=== PATIENT | female | born 1970 | race Caucasian/White ===

== ENCOUNTER 2020-10-24 14:16 | Outpatient (CLI) | payer SELFPAY ==
--- NOTE | 2020-10-24 15:00 | USCV_ITS ---
Kalina Finnegan Age: 49 Gender: F : 1970 Exam Date: 10/24/2020 15:05 Ordering Phys: Stephen Mccarthy MD ([email or web address]) Technologist: Betsey Reddy Exam Location: [facility] [place] Indication: SHORTNESS OF BREATH BP: 138 / 80 HR: 66 Rhythm: Sinus Technical Quality: Adequate MEASUREMENTS (Male / Female) Normal Values 2D ECHO LV Diastolic Diameter PLAX 4.3 cm 4.2 - 5.9 / 3.9 - 5.3 cm LV Systolic Diameter PLAX 2.8 cm IVS Diastolic Thickness 1.1 cm 0.6 - 1.0 / 0.6 - 0.9 cm IVS Systolic Thickness 1.6 cm LVPW Diastolic Thickness 0.9 cm 0.6 - 1.0 / 0.6 - 0.9 cm LVPW Systolic Thickness 1.8 cm RV Chamber Size 2.5 cm LVOT Diameter 2.0 cm LV Ejection Fraction 2D Teich 65.5 % LV Ejection Fraction MOD 2C 66.3 % LV Ejection Fraction 2C AL 66.5 % LA Diameter 2.3 cm LA Width 2.6 cm LA Height 3.7 cm RA Width 2.8 cm RA Height 3.7 cm Aorta at Sinotubular Diameter 2.4 cm M-MODE LV Diastolic Diameter MM 4.4 cm 4.2 - 5.9 / 3.9 - 5.3 cm LV Systolic Diameter MM 2.8 cm LV Ejection Fraction MM Teich 66.2 % IVS Diastolic Thickness MM 1.2 cm 0.6 - 1.0 / 0.6 - 0.9 cm IVS Systolic Thickness MM 1.7 cm LVPW Diastolic Thickness MM 0.9 cm 0.6 - 1.0 / 0.6 - 0.9 cm LVPW Systolic Thickness MM 1.5 cm Aortic Annulus Diameter 2.6 cm LA Ao Ratio MM 1.0 MV E Point Septal Separation 0.5 cm DOPPLER AV Peak Velocity 105.0 cm/s LVOT Peak Velocity 89.0 cm/s AV Area Cont Eq vti 2.7 cm squared AV Area Cont Eq pk 2.7 cm squared MV Area PHT 5.0 cm squared Mitral E to A Ratio 1.3 MV E' Velocity 46.0 cm/s Mitral E to MV E' Ratio 6.3 Mitral E to LV E' Lateral Ratio 7.4 Mitral E to LV E' Septal Ratio 5.4 TR Peak Velocity 267.0 cm/s TR Peak Gradient 28.5 mmHg Right Atrial Pressure 3.0 mmHg Pulmonary Artery Systolic Pressu 31.5 mmHg PV Peak Velocity 92.0 cm/s RV Acceleration Time 0.1 s RV Ejection Time 0.3 s RV AcT/ET 0.3 FINDINGS Left Ventricle Normal left ventricular cavity size. Normal left ventricular systolic function. No regional wall motion abnormalities. Left ventricular ejection fraction is estimated at 55 %. Normal diastolic function. Right Ventricle The right ventricle is normal in size and function. Right Atrium The right atrium is normal in size. Left Atrium The left atrium is normal in size. Mitral Valve Mildly thickened mitral valve. No mitral valve stenosis. Mild mitral valve regurgitation. Aortic Valve Aortic valve sclerosis without stenosis or regurgitation. Tricuspid Valve Structurally normal tricuspid valve without significant stenosis or regurgitation. Pulmonary artery systolic pressure is normal. Pulmonic Valve Structurally normal pulmonic valve without significant stenosis. There is no pulmonic regurgitation. Pericardium Normal pericardium without effusion. Aorta Normal ascending aorta dimension. CONCLUSIONS 1-Normal left ventricular cavity size. Normal left ventricular systolic function. No regional wall motion abnormalities. Left ventricular ejection fraction is estimated at 55 %. Normal diastolic function. 2-Mildly thickened mitral valve. No mitral valve stenosis. Mild mitral valve regurgitation. 3-Aortic valve sclerosis without stenosis or regurgitation. 4-There is no pericardial effusion. 5-Pulmonary artery systolic pressure is within normal limits. 6-Right atrial pressure is around 5 mm of mercury. 7-No significant change since the prior echocardiogram study of 08/14/2018. Stephen Mccarthy MD (Electronically Signed) Final Date: 24 October 2020 19:13 S
== END 2020-10-24 14:17 | disposition home or self-care (01) ==
LOC: RAD 14:20
PROVIDERS: PCP Internal Medicine; Visit Provider Internal Medicine Cardiovascular Disease
DX: R06.02 Shortness of breath (principal); I34.0 Nonrheumatic mitral (valve) insufficiency; I70.0 Atherosclerosis of aorta
CPT/HCPCS: 93306

== ENCOUNTER → 2021-11-01 15:17 | Outpatient (BNVA) | payer MEDICAID, SELFPAY | PROVIDERS: PCP Nurse Practitioner; Visit Provider Internal Medicine Cardiovascular Disease | DX: I10 Essential (primary) hypertension (principal); R00.2 Palpitations; I83.93 Asymptomatic varicose veins of bilateral lower extremities; E03.9 Hypothyroidism, unspecified; J44.9 Chronic obstructive pulmonary disease, unspecified; Z87.891 Personal history of nicotine dependence | CPT/HCPCS: 93005; 99214 ==

== ENCOUNTER → 2022-01-09 12:43 | Outpatient (BNVA) | payer BC, MEDICAID, SELFPAY | PROVIDERS: PCP Nurse Practitioner; Visit Provider Internal Medicine Cardiovascular Disease | DX: R00.2 Palpitations (principal); I10 Essential (primary) hypertension; I83.93 Asymptomatic varicose veins of bilateral lower extremities; E03.9 Hypothyroidism, unspecified; J44.9 Chronic obstructive pulmonary disease, unspecified; Z87.891 Personal history of nicotine dependence | CPT/HCPCS: 99214 ==

== ENCOUNTER 2022-02-25 06:08 | Day surgery (SDC) | payer BC, MEDICAID, SELFPAY ==
[2022-02-21 14:07] VITALS: BMI 24.7
[2022-02-25] VITALS (10 sets, daily range): BP systolic 120–154; BP diastolic 70–111; PULSE 67–115; RESP 16–18; TEMP 36.1; O2SAT 87–97
[2022-02-25] MEDS: sodium chloride 0.9% 1,000 ML 30 ML IV ×2 (06:36→08:29)
--- NOTE | 2022-02-25 07:54 | P.HP_ITS ---
Same Day Surgery H&P Indication for Procedure/HPI DATE OF PROCEDURE: February 25, 2022 CHIEF COMPLAINT/INDICATIONFOR SURGICAL PROCEDURE: Abdominal pain PREOP DIAGNOSIS: Abdominal pain PLANNED PROCEDURE: Operation Date: 02/25/22 07:45 Proposed Procedures p EGD and colonoscopy [id number],R63.4(Not Applicable) - Bertin Panda MD s Colonoscopy(Not Applicable) - Bertin Panda MD Medications/Allergies* Home Medications Medication Instructions Recorded Confirmed Type albuterol sulfate 90 mcg/actuation 2 puff inhalation Q6H PRN Allergic 08/19/19 02/25/22 History aerosol inhaler (ProAir HFA) Symptoms fluticasone propionate 50 1 spray intranasal DAILY 08/19/19 02/25/22 History mcg/actuation nasal spray,suspension levetiracetam 1,000 mg tablet 1,000 mg PO BID 08/19/19 02/25/22 History paroxetine HCl 20 mg tablet 20 mg PO DAILY 08/19/19 02/25/22 History calcium carbonate 600 mg-vitamin 1 cap PO DAILY 10/17/20 02/21/22 History D3 12.5 mcg (500 unit) capsule (Calcium 600 with Vitamin D3) ascorbic acid (vitamin C) 500 mg 500 mg PO DAILY 11/01/21 02/25/22 History tablet budesonide 0.5 mg/2 mL suspension 0.5 mg inhalation BID 11/01/21 02/21/22 History for nebulization levalbuterol HCl 0.63 mg/3 mL 0.63 mg inhalation TID PRN 11/01/21 02/25/22 History solution for nebulization Allergic Symptoms fluticasone propionate 230 2 puff inhalation BID 01/09/22 02/25/22 History mcg-salmeterol 21 mcg/actuation HFA inhaler (Advair HFA) baclofen 10 mg tablet 10 mg PO TID 01/24/22 02/25/22 History clobetasol 0.025 % topical cream 1 applic topical DAILY 01/24/22 02/25/22 History levothyroxine 137 mcg capsule 137 mcg PO DAILY 01/24/22 02/25/22 History metoprolol succinate 25 mg 25 mg PO DAILY 01/24/22 02/25/22 History tablet,extended release 24 hr multivitamin 1 tab PO DAILY 01/24/22 02/25/22 History ondansetron HCl 4 mg tablet 4 mg PO Q8H PRN Nausea 01/24/22 02/25/22 History psyllium husk 0.4 gram capsule 0.4 g PO DAILY 01/24/22 02/25/22 History (Metamucil) pyridoxine (vitamin B6) 50 mg 25 mg PO DAILY 01/24/22 02/25/22 History tablet vitamin B complex (B 1 tab PO DAILY 01/24/22 02/25/22 History Complex-Vitamin B12) vitamin B12 500 mcg-folic acid 400 1 tab PO DAILY 01/24/22 02/21/22 History mcg tablet Allergies/Adverse Reactions Allergy/AdvReac Type Severity Reaction Status Date / Time metoclopramide [From Reglan] Allergy Severe tongue Verified 02/25/22 06:30 swelling morphine Allergy Severe blood Verified 02/25/22 06:30 poisoning povidone-iodine Allergy Severe difficulty Verified 02/25/22 06:30 [From Betadine] breathing; itching soap [From Betadine] Allergy Severe difficulty Verified 02/25/22 06:30 breathing; itching codeine Allergy Intermediate hives; Verified 02/25/22 06:30 itching iodine Allergy Intermediate Difficuly Verified 02/25/22 06:30 breathing; itching insect venom Allergy Unknown Unknown Verified 02/25/22 06:30 pseudoephedrine Allergy Unknown Unknown Verified 02/25/22 06:30 [From Sudafed] Current Medications: Generic Name Dose Route Start Last Admin Trade Name Freq PRN Reason Stop Dose Admin Sodium Chloride 1,000 mls @ 30 mls/hr 02/25/22 06:15 02/25/22 06:36 Sodium Chloride 0.9% IV 02/26/22 06:14 30 mls/hr .Q24H KARLI Administration Pertinent History/Comorbid Conditions* Medical History (Updated 02/18/22 @ 14:53 by Bertin Panda MD) COPD (chronic obstructive pulmonary disease) HTN (hypertension) Hypothyroidism Lower extremity edema Palpitation Seizures Varicose veins of both lower extremities Surgical History (Updated 11/03/21 @ 14:54 by Ann Lantigua MD) S/P appendectomy S/P dilatation and curettage S/P hernia repair S/P tubal ligation Family History (Updated 08/19/19 @ 11:11 by Misty Graham RN) Graves disease Mother Stomach cancer Mother Grandfather Colon cancer Mother Grandfather Brother Family history of thyroid problem Mother Sister Hypertension Mother Father Social History Smoking and tobacco status: former smoker Quit status (tobacco): has quit using tobacco Second hand smoke exposure: No Smoking risk assessment/counseling performed?: No Pertinent Exam Findings alert, oriented x 3, clear to auscultation bilaterally, regular rate & rhythm, operative site marked and procedure specific exam findings Recommendations Surgery/Procedure today Coding Level of Care Code Acute Cloth Edge Singer for Aura Mercado
--- NOTE | 2022-02-25 08:42 | ANES.PREANE2 ---
Pre-Anesthetic Assessment Height/Weight: Height 1.57 m Weight 61.235 kg Temp Pulse Resp BP Pulse Ox O2 Del Method 97.0 F L 67 18 133/84 93 02/25/22 06:27 02/25/22 06:27 02/25/22 06:27 02/25/22 06:27 02/25/22 06:27 02/25/22 06:27 Preop Diagnosis: Abdominal pain Operation Date: 02/25/22 07:45 Proposed Procedures p EGD and colonoscopy [id number],R63.4(Not Applicable) - Bertin Panda MD s Colonoscopy(Not Applicable) - Bertin Panda MD Familial anesthetic complications: none Was Beta Binu taken within 24 hours: Yes Was Clonidine taken within 24 hours: N/A Last intake: Intake Last Liquid Date 02/24/22 Last Liquid Time 22:00 Last Solid Date 02/23/22 Social Tobacco and No alcohol Exam alert, oriented x 3, clear to auscultation bilaterally and regular rate & rhythm Airway Submandibular: within normal limits Cervical ROM: within normal limits Mallampati: Class II Dentition: chipped Comments: Comments: Missing several on upper arch Pulmonary Chronic Obstructive Pulmonary Disease CV/HEM Arrythmia and Hypertension Metabolic Thyroid Disease Anesthetic Plan ASA status: 3 Anesthesia: MAC Medications/Allergies Home Medications Medication Instructions Recorded Confirmed Last Taken Type albuterol sulfate 90 mcg/actuation 2 puff inhalation Q6H PRN Allergic 08/19/19 02/25/22 02/25/22 03:45 History aerosol inhaler (ProAir HFA) Symptoms fluticasone propionate 50 1 spray intranasal DAILY 08/19/19 02/25/22 02/25/22 03:45 History mcg/actuation nasal spray,suspension levetiracetam 1,000 mg tablet 1,000 mg PO BID 08/19/19 02/25/22 02/24/22 History paroxetine HCl 20 mg tablet 20 mg PO DAILY 08/19/19 02/25/22 02/24/22 History calcium carbonate 600 mg-vitamin 1 cap PO DAILY 10/17/20 02/21/22 Unknown History D3 12.5 mcg (500 unit) capsule (Calcium 600 with Vitamin D3) ascorbic acid (vitamin C) 500 mg 500 mg PO DAILY 11/01/21 02/25/22 02/22/22 History tablet budesonide 0.5 mg/2 mL suspension 0.5 mg inhalation BID 11/01/21 02/21/22 Unknown History for nebulization levalbuterol HCl 0.63 mg/3 mL 0.63 mg inhalation TID PRN 11/01/21 02/25/22 02/24/22 History solution for nebulization Allergic Symptoms fluticasone propionate 230 2 puff inhalation BID 01/09/22 02/25/22 02/25/22 03:45 History mcg-salmeterol 21 mcg/actuation HFA inhaler (Advair HFA) baclofen 10 mg tablet 10 mg PO TID 01/24/22 02/25/22 02/23/22 History clobetasol 0.025 % topical cream 1 applic topical DAILY 01/24/22 02/25/22 02/24/22 History levothyroxine 137 mcg capsule 137 mcg PO DAILY 01/24/22 02/25/22 02/24/22 History metoprolol succinate 25 mg 25 mg PO DAILY 01/24/22 02/25/22 02/24/22 History tablet,extended release 24 hr multivitamin 1 tab PO DAILY 01/24/22 02/25/22 02/22/22 History ondansetron HCl 4 mg tablet 4 mg PO Q8H PRN Nausea 01/24/22 02/25/22 02/22/22 History psyllium husk 0.4 gram capsule 0.4 g PO DAILY 01/24/22 02/25/22 02/22/22 History (Metamucil) pyridoxine (vitamin B6) 50 mg 25 mg PO DAILY 01/24/22 02/25/22 02/22/22 History tablet vitamin B complex (B 1 tab PO DAILY 01/24/22 02/25/22 02/22/22 History Complex-Vitamin B12) vitamin B12 500 mcg-folic acid 400 1 tab PO DAILY 01/24/22 02/21/22 Unknown History mcg tablet peg 3350-electrolytes 236 240 ml PO Q10M #4,000 mL 02/18/22 02/25/22 02/24/22 Rx gram-22.74 gram-6.74 gram-5.86 gram solution (Golytely) Allergies Allergy/AdvReac Type Severity Reaction Status Date / Time metoclopramide [From Reglan] Allergy Severe tongue Verified 02/25/22 06:30 swelling morphine Allergy Severe blood Verified 02/25/22 06:30 poisoning povidone-iodine Allergy Severe difficulty Verified 02/25/22 06:30 [From Betadine] breathing; itching soap [From Betadine] Allergy Severe difficulty Verified 02/25/22 06:30 breathing; itching codeine Allergy Intermediate hives; Verified 02/25/22 06:30 itching iodine Allergy Intermediate Difficuly Verified 02/25/22 06:30 breathing; itching insect venom Allergy Unknown Unknown Verified 02/25/22 06:30 pseudoephedrine Allergy Unknown Unknown Verified 02/25/22 06:30 [From Sudafed] Current Medications Generic Name Dose Route Start Last Admin Trade Name Freq PRN Reason Stop Dose Admin Sodium Chloride 1,000 mls @ 30 mls/hr 02/25/22 06:15 02/25/22 08:29 Sodium Chloride 0.9% IV 02/26/22 06:14 Infused .Q24H KARLI Infusion Sodium Chloride 1,000 mls @ 30 mls/hr 02/25/22 08:30 02/25/22 08:29 Sodium Chloride 0.9% IV 30 mls/hr .Q24H KARLI Administration PFSH Anesthesia Medical History COPD (chronic obstructive pulmonary disease) HTN (hypertension) Hypothyroidism Lower extremity edema Palpitation Seizures Varicose veins of both lower extremities Surgical History S/P appendectomy S/P dilatation and curettage S/P hernia repair S/P tubal ligation Family History Mother Graves disease Colon cancer Stomach cancer Hypertension Family history of thyroid problem Grandmother No problems noted. Grandfather Colon cancer Stomach cancer Brother Colon cancer Father Hypertension Sister Family history of thyroid problem Social History Smoking and tobacco status: former smoker Quit status (tobacco): has quit using tobacco Second hand smoke exposure: No Smoking risk assessment/counseling performed?: No Data Anesthesia Cardiac Studies: Echocardiogram Ultrasound 10/24/20
[2022-02-25] MEDS: ipratropium-albuterol 3 mL Neb INHALATION (08:56)
--- NOTE | 2022-02-25 12:59 | ANE.PACU2 ---
Inpatient post-anesthesia follow up: Airway intact: Yes Vital signs: Temperature 97 F Pulse Rate 100 Respiratory Rate 18 Blood Pressure 142/95 Pulse Oximetry 94 Oxygen Delivery Me thod Room Air Oxygen Flow Rate 3 Fraction of Inspir ed Oxygen Hydration adequate: Yes Nausea and vomiting: No Pain level: 2 Mental status: Baseline Additional Comments: Intraprocedure patient had seizure-like activity and was given midazolam, in addition oxygen saturation was decreased b/c of bronchospasm requiring breathing tx and positive pressure assistance--ultimately she recovered without issue.
== END 2022-02-25 10:13 | disposition home or self-care (01) ==
PROVIDERS: PCP Nurse Practitioner; Visit Provider Internal Medicine
PROC: 0DJ08ZZ Inspection of Upper Intestinal Tract, Via Natural or Artificial Opening Endoscopic (ICD-10-PCS; CPT 43235; principal; 2022-02-25 07:45)
PROC: 0DJD8ZZ Inspection of Lower Intestinal Tract, Via Natural or Artificial Opening Endoscopic (ICD-10-PCS; CPT 45378; 2022-02-25 07:45)
DX: R63.4 Abnormal weight loss (principal); Z68.24 Body mass index [BMI] 24.0-24.9, adult; J44.9 Chronic obstructive pulmonary disease, unspecified; I10 Essential (primary) hypertension; E03.9 Hypothyroidism, unspecified; Z87.891 Personal history of nicotine dependence
CPT/HCPCS: 43235; 45378; 94640; J2250; J2704; J7030

== ENCOUNTER → 2025-03-23 08:25 | Outpatient (BNVA) | payer OTHER, BC, MEDICAID, SELFPAY | PROVIDERS: PCP Nurse Practitioner; Visit Provider Internal Medicine Cardiovascular Disease | DX: R07.9 Chest pain, unspecified (principal) | CPT/HCPCS: 93005 ==

== ENCOUNTER 2025-06-16 09:29 | Outpatient (CLI) | payer OTHER, BC, MEDICAID, SELFPAY ==
--- NOTE | 2025-06-16 | ECG_ITS ---
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 Interpretive Statements Lung unchanged pre/post procedure; Intraprocedure shortess of breath; Symptoms resoled by discharge PROCEDURE: At the baseline, the patient's blood pressure was with a heart rate of. The baseline electrocardiogram showed normal sinus rhythm with normal ST-Ts.. The patient exercised for 7 minutes and 51 seconds on a standard Jose protocol. Patient attained a maximum heart rate of 144 beats per minute(87% of the maximum predicted heart rate) with a blood pressure at the peak exercise of 175/90 mm Hg. The EKG at the peak exercise revealed no significant changes. Patient did not have any chest pain or any significant cardiac arrhythmias with the exercise During the recovery phase, there were no new changes. Blood pressure at the end of the recovery phase was 149/99 mm Hg with a heart rate of 90 per minute. CONCLUSION: 1. Normal EKG response to treadmill exercise 2. No exercise-induced chest pain or cardiac arrhythmia 3. Fair exercise tolerance, attained a maximum of 10.2 METs Electronically Signed On 06-19-2025 20:39:12 [employer]ASSIS by Maria Dolores Post M.D. [email or web address]
[2025-06-16 09:45] VITALS: BMI 22.8
--- NOTE | 2025-06-16 09:48 | USCV_ITS ---
Stress Echo Kalina Finnegan Age: 54 Gender: F : 1970 Exam Date: 06/16/2025 10:10 Ordering Phys: Holland Guardado MD ([email or web address]) Technologist: Exam Location: [facility] [place] Indication: Rhythm: Sinus Patient History: Cardiac Medications: Medications in past 24 hours: Contrast: Stress Results Protocol: Jose Total dose(mL): Exercise Duration (min:sec): METS: 10.2 Resting HR: 66 Resting BP: 149 / 96 Peak HR: 144 Peak BP: 179 / 100 Max Predicted HR: 164 88 % Max Predicted HR Target HR: 139 Double Product: 56123 Stress Summary: BP Response: Reason for Termination: Cardiac Symptoms: ECG Analysis Resting ECG: Please see separate report Stress ECG: Please see separate report Arrhythmia: Please see separate report MEASUREMENTS (Male/Female) Normal Values FINDINGS The baseline echocardiogram with normal LV size and ejection fraction. Mitral and aortic valve morphology appeared to be normal. Aortic root was of normal size. No pericardial effusion. Segmental wall motion analysis revealed no gross wall motion abnormalities With a peak exercise, there was good augmentation of all the segments. No exercise-induced wall motion abnormalities. During the recovery phase, there were no new changes CONCLUSIONS 1. Normal echocardiographic response to exercise. 2. Low probability for coronary ischemia, based on the above findings Dr Maria Dolores Post MD [facility] (Electronically Signed) Final Date: 17 June 2025 19:41 S
[2025-06-16 11:28] VITALS: BP 149/99; PULSE 92
== END 2025-06-16 09:30 | disposition home or self-care (01) ==
LOC: CDL 09:31
PROVIDERS: PCP Nurse Practitioner; Visit Provider Internal Medicine Cardiovascular Disease
DX: R07.9 Chest pain, unspecified (principal)
CPT/HCPCS: 36415; 93017; 93350